=== PATIENT | female | born 1975 | race Caucasian/White ===

== ENCOUNTER → 2017-03-18 | Outpatient (CLI) | payer OTHER ==
[~2017-03-18] MED LIST: PRENTAB26 PO
== END | disposition home or self-care (01) ==
LOC: C.PAPS 13:51
PROVIDERS: ATTEND Obstetrics & Gynecology
DX: Z12.4 Encounter for screening for malignant neoplasm of cervix (principal)

== ENCOUNTER → 2017-05-13 | Outpatient (CLI) | payer OTHER ==
--- NOTE | 2017-05-14 07:47 | MAMMOGRAPHY REPORT ---
BILATERAL DIGITAL SCREENING MAMMOGRAM TOMOSYNTHESIS WITH CAD: 05/13/2017 CLINICAL HISTORY: Routine screening. Patient has no complaints. TECHNIQUE: Breast tomosynthesis in addition to standard 2D mammography was performed. Current study was also evaluated with a Computer Aided Detection (CAD) system. COMPARISON: Comparison is made to exams dated: 05/12/2016 mammogram, 05/08/2015 mammogram, 05/03/2014 ultrasound, 05/03/2014 mammogram, 12/01/2013 mammogram, and 07/19/2012 mammogram - [facility]. BREAST COMPOSITION: The tissue of both breasts is heterogeneously dense, which may obscure small mas ses. FINDINGS: The parenchymal pattern is unchanged. No developing mass, architectural distortion or clus ter of suspicious microcalcifications is seen in either breast. IMPRESSION: ACR BI-RADS CATEGORY 2: BENIGN There is no mammographic evidence of malignancy. A 1 year screening mammogram is recommended. The pa tient will receive written notification of the results. Approximately 10% of breast cancers are not detected with mammography. A negative mammographic report should not delay biopsy if a clinically suggestive mass is present. Angela Noonan M.D. ay/:05/13/2017 12:37:50 Car Pincher: Sanjana Anthony, [facility] letter sent: Normal 1/2 BI-RADS Code: ACR BI-RADS Category 2: Benign
== END | disposition home or self-care (01) ==
LOC: C.MAMM 09:03
PROVIDERS: ATTEND Obstetrics & Gynecology
DX: Z12.31 Encounter for screening mammogram for malignant neoplasm of breast (principal)

== ENCOUNTER → 2018-03-10 | Outpatient (CLI) | payer BC ==
--- NOTE | 2018-03-10 13:52 | MAMMOGRAPHY REPORT ---
UNILATERAL LEFT DIGITAL DIAGNOSTIC MAMMOGRAM TOMOSYNTHESIS WITH CAD AND TARGETED LEFT ULTRASOUND: 02/24 CLINICAL HISTORY: 42-year-old woman presents with a one-month history of a small palpable lump in the upper outer quadrant of the left breast, around the size of the small grape. Patient also reports di ffuse bilateral breast pain. TECHNIQUE: Left breast CC and MLO 2D and tomosynthesis images were obtained. Current study was also evaluated with a Computer Aided Detection (CAD) system. COMPARISON: Comparison is made to exams dated: 05/13/2017 mammogram, 05/12/2016 mammogram, 5 mammogram, 05/03/2014 ultrasound, 12/01/2013 mammogram, and 07/21/2013 mammogram - [facility]. BREAST COMPOSITION: The tissue of left breast is heterogeneously dense, which may obscure small petey s. FINDINGS: A triangle palpable marker overlies the upper outer posterior left breast, denoting the pal pable lump pointed out by the patient. No obvious new mass, asymmetry, area of distortion or suspici ous calcifications are seen in the area of concern in the left upper outer quadrant, or elsewhere thr oughout the remainder of the visualized left breast. The glandular pattern is similar to numerous pr ior mammograms. No skin thickening or nipple retraction appreciated. The patient pointed out her lump in the 1:30 left breast, 4 cm from the nipple and on palpation there is a discrete nodular 7 mm mass. Targeted ultrasound performed directly over this area in the 1:30 left breast, 4 cm from the nipple demonstrates sonographically normal tissue. There is a ridge of de nse glandular tissue extending superficially between fat lobules which may explain the palpable michelle rn. No discrete solid or cystic mass is seen. IMPRESSION: ACR BI-RADS CATEGORY 2: BENIGN, ULTRASOUND ACR BI-RADS CATEGORY 2: BENIGN 1. There is no new suspicious mammographic or targeted sonographic abnormality in the 1:[address] to explain the new palpable lump described by the patient. This could simply represent a ridge of glandular tissue between softer fat lobules. However, continued clinical follow-up is recommended, as biopsy of a clinically suspicious mass should not be precluded by negative imaging. 2. No suspicious mammographic abnormality identified to explain diffuse mastalgia. Clinical follow- up is also recommended for this symptom. Also discussed conservative hot compresses/NSAIDs, mineral supplements, altering caffeine intake and evening primrose oil. 3. The patient is due for annual bilateral screening mammograms in April 2018. Some breast cancers are not detected with mammography. A negative mammographic report should not marilin y biopsy if a clinically suggestive mass is present. Angela Noonan M.D. ay/:03/10/2018 10:47:11 Flight Service Agent: Sanjana Anthony, [facility]; Angela Noonan, [facility] letter sent: Normal 1/2 OVERALL STUDY BIRADS: 2 Benign
== END | disposition home or self-care (01) ==
LOC: C.MAMM 09:24
PROVIDERS: ATTEND Obstetrics & Gynecology
DX: N63.21 Unspecified lump in the left breast, upper outer quadrant (principal)